=== PATIENT | male | born 1970 | race Caucasian/White ===

== ENCOUNTER 2019-08-19 10:35 | Outpatient (CLI) | payer BC ==
[2019-08-19 11:15] LABS: ALBUMIN 4.7 g/dL (3.2-5.5); ALBUMIN/GLOBULIN RATIO 1.7 (1.0-2.2); ALKALINE PHOSPHATASE 114 IU/L (42-121); ALT ALANINE AMINOTRANSFERASE 36 IU/L (10-60); AST ASPARTATE AMINOTRANSFERASE 19 IU/L (10-42); BILIRUBIN,TOTAL 0.8 mg/dL (0.2-1.0); BUN - BLOOD UREA NITROGEN 15 mg/dL (6-20); CALCIUM 9.5 mg/dL (8.5-10.3); CARBON DIOXIDE - CO2 27 mmol/L (21-32); CHLORIDE 100 mmol/L (101-111); CHOLESTEROL 198 mg/dL; CREATININE 0.7 mg/dL (0.6-1.2); GLUCOSE 102 mg/dL (70-100); HDL CHOLESTEROL 33 mg/dL; LDL CHOLESTEROL,CALCULATED 125 mg/dL; LDL/HDL RATIO 3.8 (<3.6); SODIUM 138 mmol/L (135-145); TOTAL PROTEIN 7.5 g/dL (6.7-8.2); VLDL CHOLESTEROL 40 mg/dL
== END 2019-08-19 10:36 | disposition home or self-care (01) ==
LOC: LAB 10:35
PROVIDERS: ATTEND Family Medicine
DX: I10 Essential (primary) hypertension (principal); Z12.5 Encounter for screening for malignant neoplasm of prostate
CPT/HCPCS: 36415; 80053; 80061; 83721; 84153; 84443

== ENCOUNTER 2020-02-24 12:22 | Outpatient (CLI) | payer BC ==
--- NOTE | 2020-02-24 17:02 | XRAY Report ---
PROCEDURE: Knee 3 View RT INDICATIONS: RIGHT KNEE PAIN IN MEDIAL ASPECT, ASSESS FOR DJD TECHNIQUE: 3 views of the right knee(s) were acquired. COMPARISON: None. FINDINGS: Bones: No fractures or dislocations. No suspicious bony lesions. There is mild medial femorotibial joint space narrowing, with associated degenerative change with subchondral sclerosis and osteophyte formation. Soft tissues: No significant joint effusion. No suspicious soft tissue calcifications. IMPRESSION: Age-appropriate degenerative changes of the knee can be seen by plain film. If there is strong clinical concern for internal derangement of the knee, please consider a dedicated knee MRI for further evaluation (assuming that there is no contraindication). Reviewed by: David Romero MD on 02/24/2020 4:01 PM [facility] Approved by: David Romero MD on 02/24/2020 4:01 PM [facility] Station ID: [id number]
== END 2020-02-24 12:23 | disposition home or self-care (01) ==
LOC: LAB 12:22 → DI 12:23
PROVIDERS: ATTEND Internal Medicine
DX: M23.51 Chronic instability of knee, right knee (principal); M17.11 Unilateral primary osteoarthritis, right knee

== ENCOUNTER 2020-03-09 10:15 | Outpatient (CLI) | payer BC ==
--- NOTE | 2020-03-11 10:43 | MRI Report ---
PROCEDURE: Knee RT W/O INDICATIONS: CHRONIC INSTABILITY OF RT KNEE TECHNIQUE: Noncontrast sagittal PD fast spin echo and T2 fast spin echo with fat saturation, sagittal 3-D gradie nt sequence with fat saturation; coronal T1 spin echo and PD fast spin echo with fat saturation, and axial PD fast spin echo with fat saturation through the knee. COMPARISON: None. FINDINGS: Image quality: Excellent. Menisci: The medial and lateral menisci demonstrate normal morphology and internal signal. The meni scal root ligaments appear intact. Cruciate ligaments: The anterior and posterior cruciate ligaments appear intact. Medial structures: The medial collateral ligament appears intact. The posterior oblique ligament, s emimembranosus tendon insertions, and oblique popliteal ligament, and meniscocapsular junction appear intact. Visualized portions of the pes anserinus tendons appear normal. No abnormal bursal fluid. Lateral structures: The lateral collateral ligament, long and short heads of the biceps femoris tend on appear intact. The popliteus tendon appears normal; the popliteofibular ligament appears intact. The posterosuperior and anteroinferior popliteomeniscal fascicles appear intact. The arcuate and fa bellofibular ligaments appear intact, around the lateral inferior geniculate artery. Iliotibial band appears normal. Anterior structures: The quadriceps and patellar tendons appear intact. Patellar alignment is pily l. No femoral trochlear dysplasia or ventral trochlear prominence. No edema in the infrapatellar fa t pad. Bones and cartilage: Marrow edema is seen involving medial periphery of medial femoral condyle withou t discrete fracture line. Mild osteoarthritis and low-grade chondromalacia in lateral femoral tibial compartment is seen with 4 x 11 x 4 mm subcortical cyst formation in posterior lateral tibial plateau and mild surrounding edema suggestive of osteochondral lesion. No fracture or dislocation. No other area of abnormal marrow signal. Joint space: There is physiologic knee joint fluid. No Snyder?s cyst. Normal appearing synovial pli are incidentally noted. IMPRESSION: 1. 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 2. Bony contusion involving posterior medial periphery of medial femoral condyle. No fracture or disl ocation. 3. Cruciate ligaments are intact. 4. No evidence of focal meniscal tear. Reviewed by: Nacho Kilgore MD on 03/11/2020 10:42 AM PST Approved by: Nacho Kilgore MD on 03/11/2020 10:42 AM PST Station ID: [id number]
== END 2020-03-09 10:16 | disposition home or self-care (01) ==
LOC: DI 10:15
PROVIDERS: ATTEND Internal Medicine
DX: M17.11 Unilateral primary osteoarthritis, right knee (principal); M94.261 Chondromalacia, right knee; S70.11XA Contusion of right thigh, initial encounter